=== PATIENT | female | born 1960 | race Caucasian/White ===

== ENCOUNTER 2017-06-02 14:06 | Emergency (ER) | payer BC ==
[~2017-06-02] VITALS: Ht 154.9 cm; Wt 68.0 kg
[~2017-06-02 14:06] MED LIST: AMOX500T2 PO; IBUP800T23 PO; MMW SS
[2017-06-02 14:08] VITALS: BP 137/64; PULSE 100; RESP 16; TEMP 98.3; O2SAT 98
[2017-06-02] MEDS ORDERED: DIPHTH/TETANUS/ACEL PERTUSSIS (BOOSTER) 0.5 ML VIAL/PFS IM ONE (14:30)
[2017-06-02] MEDS ORDERED: HYDR5TAB64 PO ×2 (14:31)
[2017-06-02] MEDS ORDERED: DESM10SP NASAL (14:31)
[2017-06-02] MEDS ORDERED: LEVO-86 PO (14:31)
--- NOTE | 2017-06-02 14:32 | PD ---
HPI Chief Complaint: Cold / Flu Symptoms Time Seen by Provider: 14:21 Travel History International Travel<30 days: No Contact w/Intl Traveler<30days: No Traveled to known affect area: No History of Present Illness HPI Patient presents with an array of symptoms. Complains of dark-colored urine for 2 days. Subjective fever. Denies urinary frequency or pain. Denies nausea or vomiting. Reports a new rash that she noticed yesterday. Rash started in her legs and has spread to her trunk and arms. She did start a new vitamin about 2 weeks ago. Denies any recent antibiotics. Denies any new foods. Additionally reports a stumble in the parking lot with abrasion to the right anterior ankle. Unable to recall tetanus. History of pituitary adenoma with removal. Takes hydrocortisone, DDAVP nasal spray and Synthroid regularly. She is followed by endocrinology. States she is unable to tolerate Benadryl. PFSH Past Surgical History Cholecystectomy: Yes Other Surgery: Yes (Pituitary gland removal) Social History Alcohol Use: Yes (1 DRINK/MTH) Tobacco Use: No Allergies-Medications (Allergen,Severity, Reaction): Coded Allergies: diphenhydramine (Verified Allergy, Intermediate, AGITATION, 06/02/17) Reported Meds & Prescriptions Reported Meds & Active Scripts Active Reported Ddavp Nasal Inh (Desmopressin Nasal Inh) 0.01% Levering 10 Mcg NASAL DAILY Hydrocortisone 5 Mg Tab 2.5 Mg PO BID Take with food to decrease GI upset Hydrocortisone 5 Mg Tab 7.5 Mg PO DAILY@0600 Take with food to decrease GI upset Synthroid (Levothyroxine Sodium) 137 Mcg Tab 137 Mcg PO DAILY Review of Systems General / Constitutional: Positive: Fever Eyes: No: Visual changes HENT: No: Headaches Cardiovascular: No: Chest Pain or Discomfort Respiratory: No: Shortness of Breath Gastrointestinal: No: Abdominal Pain Genitourinary: Positive: Dysuria Musculoskeletal: No: Pain Skin: Positive Rash Neurologic: No: Weakness Psychiatric: No: Depression Endocrine: No: Polydipsia Hematologic/Lymphatic: No: Easy Bruising Physical Exam Narrative GENERAL: Well-nourished, well-developed patient. SKIN: Focused skin assessment warm/dry. HEAD: Normocephalic. EYES: No scleral icterus. No injection or drainage. Erythematous blanchable rash to her trunk legs and arms NECK: Supple, trachea midline. No JVD or lymphadenopathy. CARDIOVASCULAR: Regular rate and rhythm without murmurs, gallops, or rubs. RESPIRATORY: Breath sounds equal bilaterally. No accessory muscle use. GASTROINTESTINAL: Abdomen soft, non-tender, nondistended. MUSCULOSKELETAL: No cyanosis, or edema. BACK: Nontender without obvious deformity. No CVA tenderness. Abrasion right anterior ankle measuring approximately 1.5 cm diameter Data Data Last Documented VS Vital Signs Date Time Temp Pulse Resp B/P (MAP) Pulse Ox O2 Delivery O2 Flow Rate FiO2 06/02/17 14:24 18 98 Room Air 06/02/17 14:08 98.3 100 137/64 (88) Orders Orders Complete Blood Count With Diff (06/02/17 14:21) Comprehensive Metabolic Panel (06/02/17 14:21) Chest, Single Ap (06/02/17 ) Qxag-Vst-Vpfkzo (Booster) Inj (Boostrix (06/02/17 14:30) Urinalysis - C+S If Indicated (06/02/17 14:21) Ranitidine Liq (Zantac Liq) (06/02/17 14:45) Famotidine (Pepcid) (06/02/17 15:00) Urine Culture (06/02/17 14:42) Ceftriaxone Inj (Rocephin Inj) (06/02/17 15:45) Ct Abd/Pel W Iv Contrast(Rout) (06/02/17 ) Iohexol 350 Inj (Omnipaque 350 Inj) (06/02/17 16:28) Labs Laboratory Tests Test 06/02/17 14:42 White Blood Count 8.7 TH/MM3 Red Blood Count 4.79 MIL/MM3 Hemoglobin 13.8 GM/DL Hematocrit 41.7 % Mean Corpuscular Volume 87.0 FL Mean Corpuscular Hemoglobin 28.8 PG Mean Corpuscular Hemoglobin Concent 33.1 % Red Cell Distribution Width 12.9 % Platelet Count 279 TH/MM3 Mean Platelet Volume 9.6 FL Neutrophils (%) (Auto) 83.7 % Lymphocytes (%) (Auto) 7.7 % Monocytes (%) (Auto) 4.4 % Eosinophils (%) (Auto) 3.2 % Basophils (%) (Auto) 1.0 % Neutrophils # (Auto) 7.2 TH/MM3 Lymphocytes # (Auto) 0.7 TH/MM3 Monocytes # (Auto) 0.4 TH/MM3 Eosinophils # (Auto) 0.3 TH/MM3 Basophils # (Auto) 0.1 TH/MM3 CBC Comment DIFF FINAL Differential Comment Urine Collection Type CLEAN CATCH Urine Color EUGENIO Urine Turbidity CLOUDY Urine pH 5.5 Urine Specific [place] GREATER/EQUAL 1.030 Urine Protein 30 mg/dL Urine Glucose (UA) NEG mg/dL Urine Ketones TRACE mg/dL Urine Occult Blood MOD Urine Nitrite POS Urine Bilirubin LARGE Urine Urobilinogen 4.0 MG/DL Urine Leukocyte Esterase TRACE Urine RBC 10-14 /hpf Urine WBC 15-19 /hpf Urine WBC Clumps FEW Urine Squamous Epithelial Cells 0-5 /hpf Urine Amorphous Sediment FEW Microscopic Urinalysis Comment CULTURE INDICATED Urine Collection Time 1442 Blood Urea Nitrogen 15 MG/DL Creatinine 0.92 MG/DL Random Glucose 106 MG/DL Total Protein 7.1 GM/DL Albumin 3.1 GM/DL Calcium Level 8.4 MG/DL Alkaline Phosphatase 324 U/L Aspartate Amino Transf (AST/SGOT) 270 U/L Alanine Aminotransferase (ALT/SGPT) 421 U/L Total Bilirubin 3.7 MG/DL Sodium Level 135 MEQ/L Potassium Level 4.0 MEQ/L Chloride Level 104 MEQ/L Carbon Dioxide Level 25.8 MEQ/L Anion Gap 5 MEQ/L Estimat Glomerular Filtration Rate 63 ML/MIN [facility] Medical Decision Making Medical Screen Exam Complete: Yes Emergency Medical Condition: Yes Differential Diagnosis Allergic reaction, fatigue, UTI, hepatic failure, hepatitis, CMV, Trudi-Brady virus Narrative Course Assessment plan discussed with patient and at bedside. Urinalysis noted , patient given IV antibiotics. Liver enzymes noted, CT the abdomen and pelvis pending. Patient denies significant alcohol intake or history of liver disease. Last 72 hours Impressions Chest X-Ray 06/02/17 0000 Signed Impressions: Service Date/Time: Friday, June 02, 2017 14:55 - CONCLUSION: No acute cardiopulmonary process. Augustus Mcghee MD Abdomen/Pelvis CT 06/02/17 0000 Signed Impressions: Service Date/Time: Friday, June 02, 2017 16:21 - CONCLUSION: 1. No definite abnormality is identified to explain the clinical symptoms. However, there is groundglass attenuation and mildly prominent lymph nodes in the small bowel mesentery. This is a nonspecific finding and can be seen as a normal variant. However, it can also be seen with mesenteric panniculitis or associated with lymphoma. Consider followup CT in a few months to assess for change. 2. Nonacute findings include atherosclerotic disease an 11 mm hepatic cyst. Giuseppe Patel MD Diagnosis Primary Impression: UTI (urinary tract infection) Qualified Codes: N39.0 - Urinary tract infection, site not specified; R31.9 - Hematuria, unspecified Additional Impressions: Elevated liver enzymes Allergic reaction Qualified Codes: T78.40XA - Allergy, unspecified, initial encounter Patient Instructions: General Instructions Additional Instructions: Encouraged to continue oral hydrocortisone. Encouraged Pauline and Zantac. Encouraged fluids and a cranberry supplement. Cessation of multivitamin. Follow-up with PCP and her director of quantitative research to address liver enzymes and abnormal finding on CT. Return to the emergency room with any onset of new symptoms. Med/Other Pt SpecificInfo: Prescription(s) given Disposition: 01 DISCHARGE HOME Condition: Good Ilya Pool MD Jun 02, 2017 14:32
[2017-06-02] MEDS ORDERED: RANITIDINE HCL SYRUP 150 MG/10 ML UDC PO ONE (14:45)
[2017-06-02] MEDS ORDERED: FAMOTIDINE 20 MG TAB PO ONE (15:00)
[2017-06-02 15:06] LABS: BILIRUBIN, URINE LARGE (NEG); BLOOD, URINE MOD (NEG); GLUCOSE,URINE NEG (NEG); KETONE, URINE TRACE mg/dL (NEG); NITRITE,URINE POS (NEG); PH, URINE 5.5 (5.0-8.5); URINE LEUKOCYTE ESTERASE TRACE (NEG)
[2017-06-02 15:12] LABS: AUTOMATED NEUTROPHIL # 7.2 TH/MM3 (1.8-7.7); BASOPHIL # 0.1 TH/MM3 (0-0.2); EOSINOPHIL # 0.3 TH/MM3 (0-0.4); EOSINOPHIL % 3.2 % (0.0-4.0); HEMATOCRIT 41.7 % (35.0-46.0); HEMOGLOBIN 13.8 GM/DL (11.6-15.3); LYMPH % 7.7 % (9.0-44.0); LYMPHOCYTE # 0.7 TH/MM3 (1.0-4.8); MEAN CORPUSCULAR HEMOGLOBIN 28.8 PG (27.0-34.0); MEAN CORPUSCULAR HGB CONC 33.1 % (32.0-36.0); MEAN PLATELET VOLUME 9.6 FL (7.0-11.0); MONO % 4.4 % (0.0-8.0); MONOCYTE # 0.4 TH/MM3 (0-0.9); NEUT % 83.7 % (16.0-70.0); PLATELET COUNT 279 TH/MM3 (150-450); RED BLOOD COUNT 4.79 MIL/MM3 (4.00-5.30); RED CELL DISTRIBUTION WIDTH 12.9 % (11.6-17.2); URINE COLOR AMBER (YELLW/STRAW); WHITE BLOOD COUNT 8.7 TH/MM3 (4.0-11.0)
[2017-06-02 15:15] LABS: AMORPHOUS SEDIMENT, URINE FEW; SQUAMOUS EPITHELIAL CELL URINE 0-5 /hpf (0-5); WBC, URINE 15-19 /hpf (0-5); WHITE BLOOD CELL CLUMPS FEW
[2017-06-02 15:21] LABS: CHLORIDE 104 MEQ/L (98-107); SODIUM (NA) 135 MEQ/L (136-145)
--- NOTE | 2017-06-02 15:24 | RADRPT ---
EXAM DATE/TIME: 06/02/2017 14:55 [facility] COMPARISON: No previous studies available for comparison. INDICATIONS : Short of breath, cough MEDICAL HISTORY : None. SURGICAL HISTORY : None. ENCOUNTER: Initial ACUITY: 3 days PAIN SCORE: 0/10 LOCATION: Bilateral chest FINDINGS: A single view of the chest demonstrates the lungs to be symmetrically aerated without evidence of mas s, infiltrate or effusion. The cardiomediastinal contours are unremarkable. Osseous structures are intact. CONCLUSION: No acute cardiopulmonary process. Augsutus Mcghee MD on June 02, 2017 at 15:21 Board Certified Radiologist. This report was verified electronically.
[2017-06-02 15:26] LABS: ALBUMIN 3.1 GM/DL (3.4-5.0); BICARBONATE 25.8 MEQ/L (21.0-32.0); BLOOD UREA NITROGEN 15 MG/DL (7-18); CALCIUM 8.4 MG/DL (8.5-10.1); GLUCOSE,RANDOM 106 MG/DL (74-106)
[2017-06-02 15:29] LABS: ALT (GPT) 421 U/L (10-53); AST (GOT) 270 U/L (15-37); CREATININE 0.92 MG/DL (0.50-1.00); GLOMERULAR FILTRATION RATE 63 ML/MIN (>89)
[2017-06-02 15:31] LABS: TOTAL BILIRUBIN ADULT 3.7 MG/DL (0.2-1.0); TOTAL PROTEIN 7.1 GM/DL (6.4-8.2)
[2017-06-02 15:32] LABS: ALKALINE PHOSPHATASE 324 U/L (45-117)
[2017-06-02] MEDS ORDERED: cefTRIAXone INJ 1,000 MG in SODIUM CHLORIDE 0.9% INJ 100 ML IV ONE (15:45)
[2017-06-02] MEDS ORDERED: IOHEXOL 350 MG/ML 10 ML VIAL (for RAD DIAG) IVCONTRAST ONE (16:28)
--- NOTE | 2017-06-02 16:46 | RADRPT ---
EXAM DATE/TIME: 06/02/2017 16:21 [facility] COMPARISON: No previous studies available for comparison. INDICATIONS : Mid abdominal pain, weakness and rash over body. IV CONTRAST: 90 cc Omnipaque 350 (iohexol) IV ORAL CONTRAST: No oral contrast ingested. RADIATION DOSE: 13.41 CTDIvol (mGy) MEDICAL HISTORY : None SURGICAL HISTORY : Cholecystectomy. ENCOUNTER: Initial ACUITY: 3 days PAIN SCALE: 5/10 LOCATION: abdomen TECHNIQUE: Volumetric scanning of the abdomen and pelvis was performed. Using automated exposure control and ad justment of the mA and/or kV according to patient size, radiation dose was kept as low as reasonably achievable to obtain optimal diagnostic quality images. DICOM format image data is available electro nically for review and comparison. FINDINGS: LOWER LUNGS: The visualized lower lungs are clear. Bilateral breast implants are present. LIVER: Homogeneous density without a concerning lesion seen. There is an 11 mm cyst in the right lobe. Ther e is no dilation of the biliary tree. Gallbladder is absent with clips in the gallbladder fossa. SPLEEN: Normal size without lesion. PANCREAS: Within normal limits. KIDNEYS: Normal in size and shape. There is no mass, stone or hydronephrosis. ADRENAL GLANDS: Within normal limits. VASCULAR: There is no aortic aneurysm. There is mild atherosclerotic disease. BOWEL/MESENTERY: The stomach, small bowel, and colon demonstrate no acute abnormality. Mild colonic diverticulosis is present, most prominent in the sigmoid colon. There is no free intraperitoneal air or fluid. Groundg lass opacity is present in the small bowel mesentery with mildly prominent lymph nodes. ABDOMINAL WALL: Within normal limits. RETROPERITONEUM: There is no lymphadenopathy. BLADDER: No wall thickening or mass. REPRODUCTIVE: Within normal limits. INGUINAL: There is no lymphadenopathy or hernia. MUSCULOSKELETAL: Within normal limits for patient age. There are degenerative changes of the lumbar spine particularly at L5-S1. CONCLUSION: 1. No definite abnormality is identified to explain the clinical symptoms. However, there is groundgl ass attenuation and mildly prominent lymph nodes in the small bowel mesentery. This is a nonspecific finding and can be seen as a normal variant. However, it can also be seen with mesenteric panniculiti s or associated with lymphoma. Consider followup CT in a few months to assess for change. 2. Nonacute findings include atherosclerotic disease an 11 mm hepatic cyst. Giuseppe Patel MD on June 02, 2017 at 16:38 Board Certified Radiologist. This report was verified electronically.
[2017-06-02 17:36] VITALS: BP 128/78
== END 2017-06-02 17:39 | disposition home or self-care (01) ==
LOC: PHED 14:06
DX: T78.40XA Allergy, unspecified, initial encounter (principal); N39.0 Urinary tract infection, site not specified; R74.8 Abnormal levels of other serum enzymes; R21 Rash and other nonspecific skin eruption; Z88.8 Allergy status to other drugs, medicaments and biological substances; Z79.899 Other long term (current) drug therapy; Z23 Encounter for immunization
CPT/HCPCS: 71045; 74177; 80053; 81001; 85025; 87086; 90471; 90715; 96365; 99285; J0696; Q9967